=== PATIENT | male | born 1965 | race African-American/Black ===

== ENCOUNTER 2020-07-14 11:49 | Emergency (ER) | payer BC ==
[~2020-07-14] VITALS: Ht 190.5 cm; Wt 109.3 kg
[2020-07-14] MEDS ORDERED: ACETAMINOPHEN/CODEINE 300MG - 30MG TAB PO ONE (12:15)
== END 2020-07-14 13:31 | disposition home or self-care (01) ==
LOC: ER 12:06
DX: U07.1 COVID-19 (principal)
CPT/HCPCS: 71045; 99283